=== PATIENT | male | born 1940 | race Two or more races ===

== ENCOUNTER 2017-04-21 09:59 | Outpatient (CLI) | payer MEDICARE ==
--- NOTE | 2017-04-25 09:30 | Electroencephalogram ---
DATE OF PROCEDURE: 04/21/2017 REFERRING PHYSICIAN: . HISTORY: This is a 76-year-old man with a history of amnestic episodes of unknown etiology. EEG was requested to assess for possible ongoing seizure event. EEG was done using 18 electrodes placed scalp to scalp, scalp to ear montages according to 10/20 [employer] System. Most wakeful portions of recording, background consists of well regulated 8 to 9 cycles per second, alpha activity often overrided by fast or low voltage beta activities. Photic stimulation from 3 to 32 hertz was done and resulted in no significant changes. Hyperventilation was obtained, resulted in no significant changes. As recording progressed, there was no evidence of spike or wave activity, no paroxysmal activities noted. IMPRESSION: Normal awake electroencephalogram with photic stimulation and hyperventilation. COMMENT: Absence of paroxysmal event on a single recording does not rule out seizure disorder. Benji Aragon M.D. DR: QUE JOB#: [id number] CC:
== END 2017-04-21 11:59 | disposition home or self-care (01) ==
LOC: CAR 09:59
DX: G40.909 Epilepsy, unspecified, not intractable, without status epilepticus (principal)
CPT/HCPCS: 95819